=== PATIENT | male | born 1965 | race Caucasian/White ===

== ENCOUNTER 2018-10-29 14:13 | Emergency (ER) | payer MEDICARE, MEDICAID ==
--- NOTE | 2018-10-29 14:25 | EDM.PDOCBH ---
ED HPI GENERAL MEDICAL PROBLEM - General Chief Complaint: Behavioral/Psych Stated Complaint: MEDICAL VIA [facility] Time Seen by Provider: 10/29/18 14:53 Source of Information: Reports: Patient, EMS. Denies: RN Notes Reviewed - History of Present Illness INITIAL COMMENTS - FREE TEXT/NARRATIVE: 53 years old male patient brought in by [facility] ambulance from his prison because he has been arguing with the staff as a prison as he do not want him there anymore. He refused taking his medication last night and he is diabetic. The patient is agitated. Augmentative. Patient doctor or at [facility] also the family waiting for the patient at the ER there as a ER at [facility] is expecting the patientat [facility] ER which is closer than our ER, however the patient was brought in to our ER because he requested that.patient denies any chest pain or shortness breath. Denies any cough or fever. Denies any dizziness. Denies any abdominal pain diarrhea or constipation. Denies any urinary symptom. ED ROS GENERAL - Review of Systems Review Of Systems: ROS reveals no pertinent complaints other than HPI. ED EXAM, BEHAVIORAL HEALTH - Physical Exam Exam: See Below Exam Limited By: No Limitations Ears: Normal External Exam Nose: Normal Inspection Neck: Normal Inspection Respiratory/Chest: No Respiratory Distress, Lungs Clear, Normal Breath Sounds, No Accessory Muscle Use, Chest Non-Tender. No: Respiratory Distress, Decreased Breath Sounds, Crackles, Rales, Rhonchi, Wheezing Cardiovascular: Normal Peripheral Pulses, Regular Rate, Rhythm, No Murmur. No: Bradycardia, Tachycardia GI/Abdominal: Normal Bowel Sounds, Soft, Non-Tender, No Organomegaly, No Distention (Male) Exam: No Hernia Extremities: Normal Inspection, Normal Range of Motion Neurological: Alert, Normal Gait, No Motor/Sensory Deficits Psychiatric: Alert, Oriented, Agitated, Flight of Ideas. No: Homicidal Thoughts , Suicidal Plan, Suicidal Thoughts Skin Exam: Warm, Dry, Normal color COURSE, BEHAVIORAL HEALTH COMP - Course Vital Signs: Last Vital Signs Temp 36.1 C 10/29/18 16:17 Pulse 110 H 10/29/18 16:17 Resp 16 10/29/18 16:17 BP 142/87 H 10/29/18 16:17 Pulse Ox 96 10/29/18 16:17 Orders, Labs, Meds: Active Orders 24 hr Category Date Time Status DRUG SCREEN, URINE [URCHEM] Urgent Lab 10/29/18 14:26 Ordered Laboratory Tests 10/29/18 10/29/18 10/29/18 Range/Units 14:38 14:38 14:38 WBC 7.8 (4.5-11.0) K/uL RBC 4.97 (4.30-5.90) M/uL Hgb 14.0 (12.0-15.0) g/dL Hct 41.5 (40.0-54.0) % MCV 84 (80-98) fL MCH 28 (27-31) pg MCHC 34 (32-36) % Plt Count 405 H (150-400) K/uL Neut % (Auto) 48 (36-66) % Lymph % (Auto) 36 (24-44) % [place] % (Auto) 13 H (2-6) % Eos % (Auto) 2 (2-4) % Baso % (Auto) 1 (0-1) % Sodium 141 (140-148) mmol/L Potassium 4.2 (3.6-5.2) mmol/L Chloride 103 (100-108) mmol/L Carbon Dioxide 29 (21-32) mmol/L Anion Gap 8.6 (5.0-14.0) mmol/L BUN 12 (7-18) mg/dL Creatinine 0.9 (0.8-1.3) mg/dL Est Cr Clr Drug Dosing TNP Estimated GFR (MDRD) > 60 (>60) Glucose 153 H (74-106) mg/dL Calcium 9.0 (8.5-10.1) mg/dL Ethyl Alcohol < 3 mg/dL Medications Discontinued Medications Generic Name Dose Route Start Last Admin Trade Name Freq PRN Reason Stop Dose Admin Olanzapine 5 mg 10/29/18 15:50 Zyprexa PO 10/29/18 15:51 ONETIME ONE Medical Clearance: 10/29/18 15:00 patient was seen and examined shortly after arrival. Stable. Lab reviewed.no significant acute abnormalities. Patient now is calm cooperative. Requested something to help with sleep Given 5 mg oral Zyprexa. His prison agreed to accept him back. Stable for discharge back to his prison. Denies any suicidal or homicidal ideation. 10/29/18 17:07 10/29/18 17:08 Departure - Departure Time of Disposition: 17:09 Disposition: DC/Tfer to [facility] Condition: Good Clinical Impression: Agitation - Discharge Information Referrals: PCP,None [Primary Care Provider] - Forms: ED Department Discharge Additional Instructions: continue home meds Rest and stay well-hydrated Close follow-up with PCP Come back if symptom worsen - My Orders Last 24 Hours: My Active Orders 10/29/18 14:26 DRUG SCREEN, URINE [URCHEM] Urgent - Assessment/Plan Last 24 Hours: My Active Orders 10/29/18 14:26 DRUG SCREEN, URINE [URCHEM] Urgent Plan: continue home meds Rest and stay well-hydrated Close follow-up with PCP Come back if symptom worsen
[2018-10-29] MEDS ORDERED: OLANZapine 5 MG Tab PO ONE (15:50)
== END 2018-10-29 17:09 ==
LOC: JP.ED 14:13
DX: R45.1 Restlessness and agitation (principal); E11.9 Type 2 diabetes mellitus without complications
CPT/HCPCS: 36415; 80048; 85025; 99283; 99284; A9270; G0480

== ENCOUNTER 2018-11-27 12:14 | Observation (INO) | payer MEDICARE, MEDICAID ==
--- NOTE | 2018-11-27 12:38 | EDM.PDOC ---
ED HPI GENERAL MEDICAL PROBLEM - General Chief Complaint: Diabetic Complaint Stated Complaint: ILL Time Seen by Provider: 11/27/18 12:27 Source of Information: Reports: Patient, EMS, RN Notes Reviewed History Limitations: Reports: No Limitations - History of Present Illness INITIAL COMMENTS - FREE TEXT/NARRATIVE: 53-year-old gentleman presents emergency department today via EMS services for elevated blood sugars. He is a resident of a jail states she's been ill for the last 2 or 3 days has been having problems with his blood sugar to have been elevated he does admit to cough and feeling short of breath at times he says he is felt feverish at home no nausea vomiting no chest pain no symptomatology's - Related Data Allergies Allergy/AdvReac Type Severity Reaction Status Date / Time No Known Allergies Allergy Verified 10/29/18 17:29 Home Meds: Home Meds Lisinopril 20 mg PO DAILY 10/29/18 [History] Lurasidone HCl [Latuda] 160 mg PO BEDTIME 10/29/18 [History] Sertraline HCl [Zoloft] 150 mg PO DAILY 10/29/18 [History] glyBURIDE [Micronase] 5 mg PO BID 10/29/18 [History] metFORMIN [Glucophage XR] 1,000 mg PO BID 10/29/18 [History] Doxepin [SINEquan] 50 mg PO BEDTIME 11/27/18 [History] Simvastatin [Zocor] 40 mg PO DAILY 11/27/18 [History] clonazePAM [Clonazepam] 1 mg PO BEDTIME 11/27/18 [History] Past Medical History Cardiovascular History: Reports: High Cholesterol, Hypertension Psychiatric History: Reports: Psych Hospitalization(s), Schizophrenia Endocrine/Metabolic History: Reports: Diabetes, Type II Social & Family History - Tobacco Use Smoking Status *Q: Unknown Ever Smoked ED ROS GENERAL - Review of Systems Review Of Systems: See Below Constitutional: Reports: Fever, Chills HEENT: Reports: No Symptoms Respiratory: Reports: Shortness of Breath, Cough, Sputum Cardiovascular: Reports: Dyspnea on Exertion GI/Abdominal: Reports: Diarrhea : Reports: No Symptoms Musculoskeletal: Reports: No Symptoms ED EXAM GENERAL NO PERIP PULSE - Physical Exam Exam: See Below Text/Narrative:: General: Male, not in any distress, alert and oriented x3 HEENT: head is atraumatic normocephalic, eyes pupils equal round reactive to light, sclera clear no conjunctivitis appreciated. Ears tympanic membranes clear and doss landmarks and light reflex are present bilaterally canals are clear. Nose no septal deviation, nares are clear, no blood present. Mouth mucosa is moist and pink no erythema or exudate noted in soft palate, tongue is midline uvula is midline, dentition is intact. Neck: Supple no thyromegaly no tracheal deviation. Nodes: Cervical nodes subclavicular nodes nontender no palpable lymphadenopathy noted. Lungs: clear to auscultation bilaterally with symmetrical respirations, no adventitious noise appreciated. CV: Regular rate and rhythm S1 and S2 appreciated no murmurs rubs or gallops noted. Abdomen: Soft, nontender, no palpable masses or organomegaly appreciated, no distention no guarding bowel sounds are present, Neuro: GCS 15 Skin: Warm and dry, intact Extremities: No lower extremity edema appreciated, pedal pulse is +2. Rectal (Males) Exam: Normal Exam, Normal Rectal Tone, Prostate Normal Course - Vital Signs Last Recorded V/S: Last Vital Signs Temp 97.8 F 11/27/18 12:17 Pulse 105 H 11/27/18 15:21 Resp 20 11/27/18 13:32 BP 144/79 H 11/27/18 15:21 Pulse Ox 99 11/27/18 13:32 - Orders/Labs/Meds Orders: Active Orders 24 hr Category Date Time Status Patient Status Manage Transfer [TRANSFER] Routine ADT 11/27/18 16:21 Active Vital Signs [RC] Q1H Care 11/27/18 12:32 Active CULTURE BLOOD [BC] Urgent Lab 11/27/18 12:35 Received CULTURE BLOOD [BC] Urgent Lab 11/27/18 12:45 Received Iopamidol [Isovue-300 (61%)] Med 11/27/18 15:15 Active 100 ml IV . DIRECTED Lactated Ringers [Ringers, Lactated] 1,000 ml Med 11/27/18 12:45 Active IV ASDIRECTED Sodium Chloride 0.9% [Normal Saline] 100 ml Med 11/27/18 15:15 Active IV ASDIRECTED Blood Culture x2 Reflex Set [OM.PC] Urgent Oth 11/27/18 12:32 Ordered Resuscitation Status Routine Resus Stat 11/27/18 16:26 Ordered Medication Orders Lactated Ringer's (Ringers, Lactated) 1,000 mls @ 999 mls/hr IV ASDIRECTED FILI Last Admin: 11/27/18 13:04 Dose: 999 mls/hr Sodium Chloride (Normal Saline) 100 mls @ 3 mls/sec IV ASDIRECTED FILI Last Admin: 11/27/18 15:26 Dose: 3 mls/sec Iopamidol (Isovue-300 (61%)) 100 ml IV . DIRECTED FILI Last Admin: 11/27/18 15:27 Dose: 100 ml Labs: Laboratory Tests 11/27/18 11/27/18 11/27/18 Range/Units 12:32 12:32 12:32 WBC 26.2 H (4.5-11.0) K/uL RBC 5.76 (4.30-5.90) M/uL Hgb 15.9 H (12.0-15.0) g/dL Hct 46.5 (40.0-54.0) % MCV 81 (80-98) fL MCH 28 (27-31) pg MCHC 34 (32-36) % Plt Count 480 H (150-400) K/uL Neut % (Auto) 83 H (36-66) % Lymph % (Auto) 9 L (24-44) % [place] % (Auto) 7 H (2-6) % Eos % (Auto) 0 L (2-4) % Baso % (Auto) 0 (0-1) % Puncture Site ABG pH (7.350-7.450) ABG pCO2 (35.0-42.0) mmHg ABG pO2 (75.0-100.0) mmHg ABG HCO3 (22.0-26.0) mmol/L ABG Total CO2 (23.0-27.0) mmol/L ABG O2 Saturation (95.0-98.0) % ABG O2 Content (15.0-23.0) %vol ABG Base Excess mm/L ABG Hemoglobin (13.5-18.0) g/dL ABG Oxyhemoglobin % ABG Carboxyhemoglobin (0.0-1.6) % ABG Methemoglobin % Pablo Test O2 Delivery Device Sodium 132 L (140-148) mmol/L Potassium 4.2 (3.6-5.2) mmol/L Chloride 98 L (100-108) mmol/L Carbon Dioxide 23 (21-32) mmol/L Anion Gap 15.2 H (5.0-14.0) mmol/L BUN 13 (7-18) mg/dL Creatinine 0.9 (0.8-1.3) mg/dL Est Cr Clr Drug Dosing 98.77 mL/min Estimated GFR (MDRD) > 60 (>60) Glucose 283 H (74-106) mg/dL Lactic Acid 2.1 H (0.4-2.0) mmol/L Calcium 8.7 (8.5-10.1) mg/dL Total Bilirubin 0.4 (0.2-1.0) mg/dL AST 16 (15-37) U/L ALT 30 (12-78) U/L Alkaline Phosphatase 87 (46-116) U/L Troponin I (0.000-0.056) ng/mL C-Reactive Protein 0.41 H (0.0-0.3) mg/dL Total Protein 7.8 (6.4-8.2) g/dL Albumin 4.0 (3.4-5.0) g/dL Globulin 3.8 H (2.3-3.5) g/dL Albumin/Globulin Ratio 1.1 L (1.2-2.2) Procalcitonin ng/mL Urine Color (YELLOW) Urine Appearance (CLEAR) Urine pH (5.0-8.0) Ur Specific [place] (1.008-1.030) Urine Protein (NEGATIVE) mg/dL Urine Glucose (UA) (NEGATIVE) mg/dL Urine Ketones (NEGATIVE) mg/dL Urine Occult Blood (NEGATIVE) Urine Nitrite (NEGATIVE) Urine Bilirubin (NEGATIVE) Urine Urobilinogen (0.2-1.0) EU/dL Ur Leukocyte Esterase (NEGATIVE) Urine RBC (0-5) Urine WBC (0-5) Ur Epithelial Cells Amorphous Sediment Urine Bacteria Urine Mucus 11/27/18 11/27/18 11/27/18 Range/Units 12:33 12:35 12:45 WBC (4.5-11.0) K/uL RBC (4.30-5.90) M/uL Hgb (12.0-15.0) g/dL Hct (40.0-54.0) % MCV (80-98) fL MCH (27-31) pg MCHC (32-36) % Plt Count (150-400) K/uL Neut % (Auto) (36-66) % Lymph % (Auto) (24-44) % [place] % (Auto) (2-6) % Eos % (Auto) (2-4) % Baso % (Auto) (0-1) % Puncture Site Rt radial ABG pH 7.469 H (7.350-7.450) ABG pCO2 29.0 L (35.0-42.0) mmHg ABG pO2 85.8 (75.0-100.0) mmHg ABG HCO3 20.8 L (22.0-26.0) mmol/L ABG Total CO2 17.4 L (23.0-27.0) mmol/L ABG O2 Saturation 97.4 (95.0-98.0) % ABG O2 Content 22.2 (15.0-23.0) %vol ABG Base Excess -1.1 mm/L ABG Hemoglobin 16.6 (13.5-18.0) g/dL ABG Oxyhemoglobin 95.1 % ABG Carboxyhemoglobin 1.7 H (0.0-1.6) % ABG Methemoglobin 0.7 % Pablo Test Passed O2 Delivery Device Room air Sodium (140-148) mmol/L Potassium (3.6-5.2) mmol/L Chloride (100-108) mmol/L Carbon Dioxide (21-32) mmol/L Anion Gap (5.0-14.0) mmol/L BUN (7-18) mg/dL Creatinine (0.8-1.3) mg/dL Est Cr Clr Drug Dosing mL/min Estimated GFR (MDRD) (>60) Glucose (74-106) mg/dL Lactic Acid (0.4-2.0) mmol/L Calcium (8.5-10.1) mg/dL Total Bilirubin (0.2-1.0) mg/dL AST (15-37) U/L ALT (12-78) U/L Alkaline Phosphatase (46-116) U/L Troponin I < 0.017 (0.000-0.056) ng/mL C-Reactive Protein (0.0-0.3) mg/dL Total Protein (6.4-8.2) g/dL Albumin (3.4-5.0) g/dL Globulin (2.3-3.5) g/dL Albumin/Globulin Ratio (1.2-2.2) Procalcitonin 0.07 ng/mL Urine Color (YELLOW) Urine Appearance (CLEAR) Urine pH (5.0-8.0) Ur Specific [place] (1.008-1.030) Urine Protein (NEGATIVE) mg/dL Urine Glucose (UA) (NEGATIVE) mg/dL Urine Ketones (NEGATIVE) mg/dL Urine Occult Blood (NEGATIVE) Urine Nitrite (NEGATIVE) Urine Bilirubin (NEGATIVE) Urine Urobilinogen (0.2-1.0) EU/dL Ur Leukocyte Esterase (NEGATIVE) Urine RBC (0-5) Urine WBC (0-5) Ur Epithelial Cells Amorphous Sediment Urine Bacteria Urine Mucus 11/27/18 Range/Units 13:59 WBC (4.5-11.0) K/uL RBC (4.30-5.90) M/uL Hgb (12.0-15.0) g/dL Hct (40.0-54.0) % MCV (80-98) fL MCH (27-31) pg MCHC (32-36) % Plt Count (150-400) K/uL Neut % (Auto) (36-66) % Lymph % (Auto) (24-44) % [place] % (Auto) (2-6) % Eos % (Auto) (2-4) % Baso % (Auto) (0-1) % Puncture Site ABG pH (7.350-7.450) ABG pCO2 (35.0-42.0) mmHg ABG pO2 (75.0-100.0) mmHg ABG HCO3 (22.0-26.0) mmol/L ABG Total CO2 (23.0-27.0) mmol/L ABG O2 Saturation (95.0-98.0) % ABG O2 Content (15.0-23.0) %vol ABG Base Excess mm/L ABG Hemoglobin (13.5-18.0) g/dL ABG Oxyhemoglobin % ABG Carboxyhemoglobin (0.0-1.6) % ABG Methemoglobin % Pablo Test O2 Delivery Device Sodium (140-148) mmol/L Potassium (3.6-5.2) mmol/L Chloride (100-108) mmol/L Carbon Dioxide (21-32) mmol/L Anion Gap (5.0-14.0) mmol/L BUN (7-18) mg/dL Creatinine (0.8-1.3) mg/dL Est Cr Clr Drug Dosing mL/min Estimated GFR (MDRD) (>60) Glucose (74-106) mg/dL Lactic Acid (0.4-2.0) mmol/L Calcium (8.5-10.1) mg/dL Total Bilirubin (0.2-1.0) mg/dL AST (15-37) U/L ALT (12-78) U/L Alkaline Phosphatase (46-116) U/L Troponin I (0.000-0.056) ng/mL C-Reactive Protein (0.0-0.3) mg/dL Total Protein (6.4-8.2) g/dL Albumin (3.4-5.0) g/dL Globulin (2.3-3.5) g/dL Albumin/Globulin Ratio (1.2-2.2) Procalcitonin ng/mL Urine Color Yellow (YELLOW) Urine Appearance Clear (CLEAR) Urine pH 5.5 (5.0-8.0) Ur Specific [place] 1.025 (1.008-1.030) Urine Protein 100 H (NEGATIVE) mg/dL Urine Glucose (UA) 500 H (NEGATIVE) mg/dL Urine Ketones 40 H (NEGATIVE) mg/dL Urine Occult Blood Negative (NEGATIVE) Urine Nitrite Negative (NEGATIVE) Urine Bilirubin Negative (NEGATIVE) Urine Urobilinogen Normal (0.2-1.0) EU/dL Ur Leukocyte Esterase Negative (NEGATIVE) Urine RBC Not seen (0-5) Urine WBC Not seen (0-5) Ur Epithelial Cells Not seen Amorphous Sediment Rare Urine Bacteria Not seen Urine Mucus Not seen Meds: Medications Generic Name Dose Route Start Last Admin Trade Name Freq PRN Reason Stop Dose Admin Lactated Ringer's 1,000 mls @ 999 mls/hr 11/27/18 12:45 11/27/18 13:04 Ringers, Lactated IV 999 mls/hr ASDIRECTED FILI Administration Sodium Chloride 100 mls @ 3 mls/sec 11/27/18 15:15 11/27/18 15:26 Normal Saline IV 3 mls/sec ASDIRECTED FILI Administration Iopamidol 100 ml 11/27/18 15:15 11/27/18 15:27 Isovue-300 (61%) IV 100 ml . DIRECTED FILI Administration Discontinued Medications Generic Name Dose Route Start Last Admin Trade Name Kitty PRN Reason Stop Dose Admin Sodium Chloride 10 ml 11/27/18 15:15 11/27/18 15:26 Saline Flush FLUSH 11/27/18 15:16 10 ml ONETIME ONE Administration Departure - Departure Time of Disposition: 16:45 Disposition: Admitted As Inpatient 64 Condition: Fair Clinical Impression: Diarrhea Qualifiers: Diarrhea type: unspecified type Qualified Code(s): R19.7 - Diarrhea, unspecified - Discharge Information Referrals: PCP,None [Primary Care Provider] - Forms: ED Department Discharge - My Orders Last 24 Hours: My Active Orders 11/27/18 12:32 Vital Signs [RC] Q1H Blood Culture x2 Reflex Set [OM.PC] Urgent 11/27/18 12:35 CULTURE BLOOD [BC] Urgent 11/27/18 12:45 CULTURE BLOOD [BC] Urgent Lactated Ringers [Ringers, Lactated] 1,000 ml IV ASDIRECTED 11/27/18 15:15 Iopamidol [Isovue-300 (61%)] 100 ml IV . DIRECTED Sodium Chloride 0.9% [Normal Saline] 100 ml IV ASDIRECTED - Assessment/Plan Last 24 Hours: My Active Orders 11/27/18 12:32 Vital Signs [RC] Q1H Blood Culture x2 Reflex Set [OM.PC] Urgent 11/27/18 12:35 CULTURE BLOOD [BC] Urgent 11/27/18 12:45 CULTURE BLOOD [BC] Urgent Lactated Ringers [Ringers, Lactated] 1,000 ml IV ASDIRECTED 11/27/18 15:15 Iopamidol [Isovue-300 (61%)] 100 ml IV . DIRECTED Sodium Chloride 0.9% [Normal Saline] 100 ml IV ASDIRECTED Plan: Assessment Acuity = acute Site and laterality = abdominal discomfort, diarrhea Etiology = unclear etiology Manifestations = none Location of injury = Home Lab values = WBC elevated 26.2 consistent leukocytosis, pH 7.47 PCO2 29 PO2 85.8 bicarbonate 17.9 Pro calcitonin is normal at 0.07 sodium low month or 2 consistent hyponatremia lactic acid normal at 2.1 troponin is negative CRP slightly elevated 0.418 CTs scan of the abdomen does show thickened esophagus Plan Called and discussed the case with hospitalist on-call at 1630 kindly agreed to come and evaluate the patient emergency department for admission This note was dictated using [employer] voice recognition software please call with any questions on syntax or grammar.
[2018-11-27] MEDS ORDERED: Lactated Ringers 1,000 ML IV SCH (12:45)
--- NOTE | 2018-11-27 13:13 | CRLCR ---
Indication: Cough. Technique: PA and lateral views the chest were obtained. Comparison: None Findings: The heart is normal in size. The lungs are clear. No infiltrate, pleural effusion, or pneumothorax is identified. Impression: No acute cardiopulmonary process. Dictated by Kristi Rashid MD @ Nov 27 2018 1:11PM Signed by Dr. Kristi Rashid @ Nov 27 2018 1:12PM
[2018-11-27] MEDS ORDERED: Iopamidol 612 MG/ML 100 ML Bottle IV SCH (15:15)
[2018-11-27] MEDS ORDERED: Sodium Chloride 0.9% 10 ML Syringe FLUSH ONE (15:15)
[2018-11-27] MEDS ORDERED: Sodium Chloride 0.9% 100 ML IV SCH (15:15)
--- NOTE | 2018-11-27 16:18 | CRLCT ---
Indication: Generalized pain. Technique: Multiple contiguous axial images were obtained from the lung bases through the symphysis pubis after the intravenous administration of 100 cc Isovue-300. Please note that all CT scans at this facility use dose modulation, iterative reconstruction, and/or weight-based dosing when appropriate to reduce radiation dose to as low as reasonably achievable. Comparison: None Findings: Thickening of the wall of the distal esophagus is identified. The stomach is distended with fluid. Layering sludge or stones are identified within the gallbladder. Mild diffuse fatty infiltration of the liver is identified. No intrahepatic biliary ductal dilatation is identified. The spleen, pancreas, adrenals, and kidneys are grossly normal. A small left renal cyst is identified. In the pelvis, thickening of the wall the urinary bladder is identified. Prostate gland is grossly normal. The small large bowel are normal in caliber. The appendix is normal. No free air or free fluid is identified within the abdomen or pelvis. No lytic or blastic lesions are identified. Impression: Thickening of the wall of the distal esophagus. An EGD may be of benefit in further evaluating this finding. Thickening of the wall urinary bladder. Cystitis cannot be excluded. Clinical follow up is recommended. Please note that all CT scans at this facility use dose modulation, iterative reconstruction, and/or weight-based dosing when appropriate to reduce radiation dose to as low as reasonably achievable. Dictated by Kristi Rashid MD @ Nov 27 2018 4:14PM Signed by Dr. Kristi Rashid @ Nov 27 2018 4:17PM
--- NOTE | 2018-11-27 16:37 | PCM.HP.2 ---
H&P History of Present Illness - General Date of Service: 11/27/18 Admit Problem/Dx: Admission Diagnosis/Problem Admission Diagnosis/Problem Colitis Source of Information: Patient, Provider, RN Notes Reviewed History Limitations: Reports: No Limitations - History of Present Illness Initial Comments - Free Text/Narative: Mr. Hill is a 53-year-old gentleman who was admitted to observation status through the emergency department with dehydration and diarrhea, secondary to colitis. He is also experienced symptoms of dysphagia and pain in the chest secondary to esophagitis. He was feeling well until about 3 days ago when he began to develop watery diarrhea and estimates that he has had at least 10 stools per day. He denies fever, chills, sweats or significant abdominal pain associated with the diarrhea. On evaluation in the emergency department white blood cell count is elevated at 26,000 and there is a very modest elevation in lactic acid level likely secondary to dehydration. He has dry oral mucosal membranes consistent with dehydration and was mildly tachycardic on initial presentation. Tachycardia has improved with IV fluids given in the emergency department. CT scan of the abdomen pelvis shows thickening of the esophagus but no other significant abnormalities. - Related Data Allergies/Adverse Reactions: Allergies Allergy/AdvReac Type Severity Reaction Status Date / Time No Known Allergies Allergy Verified 10/29/18 17:29 Home Medications: Home Meds Lisinopril 20 mg PO DAILY 10/29/18 [History] Lurasidone HCl [Latuda] 160 mg PO BEDTIME 10/29/18 [History] Sertraline HCl [Zoloft] 150 mg PO DAILY 10/29/18 [History] glyBURIDE [Micronase] 5 mg PO BID 10/29/18 [History] metFORMIN [Glucophage XR] 1,000 mg PO BID 10/29/18 [History] Doxepin [SINEquan] 50 mg PO BEDTIME 11/27/18 [History] Simvastatin [Zocor] 40 mg PO DAILY 11/27/18 [History] clonazePAM [Clonazepam] 1 mg PO BEDTIME 11/27/18 [History] Past Medical History Cardiovascular History: Reports: High Cholesterol, Hypertension Psychiatric History: Reports: Psych Hospitalization(s), Schizophrenia Endocrine/Metabolic History: Reports: Diabetes, Type II Social & Family History - Tobacco Use Smoking Status *Q: Unknown Ever Smoked H&P Review of Systems - Review of Systems: Review Of Systems: See Below General: Reports: Malaise, Weakness. Denies: Fever, Chills HEENT: Reports: Dysphasia. Denies: Headaches Pulmonary: Reports: No Symptoms Cardiovascular: Reports: No Symptoms Gastrointestinal: Reports: Diarrhea. Denies: Abdominal Pain, Difficulty Swallowing, Hematemesis, Hematochezia, Melena, Nausea, Vomiting Genitourinary: Reports: No Symptoms Musculoskeletal: Reports: No Symptoms Skin: Reports: No Symptoms Psychiatric: Reports: No Symptoms Neurological: Reports: No Symptoms Hematologic/Lymphatic: Reports: No Symptoms Immunologic: Reports: No Symptoms Exam - Exam Exam: See Below - Vital Signs Vital Signs: Last Vital Signs Temp 97.8 F 11/27/18 12:17 Pulse 105 H 11/27/18 15:21 Resp 20 11/27/18 13:32 BP 144/79 H 11/27/18 15:21 Pulse Ox 99 11/27/18 13:32 Weight: 222 lb - Exam Quality Assessment: DVT Prophylaxis General: Alert, Oriented, Cooperative, Mild Distress HEENT: Conjunctiva Clear, Hearing Intact, Normal Nasal Septum, Posterior Pharynx Clear, Pupils Equal. No: Mucosa Moist & [place]: Supple, Trachea Midline, +2 Carotid Pulse wo Bruit Lungs: Clear to Auscultation, Normal Respiratory Effort Cardiovascular: Regular Rate, Regular Rhythm, Normal S1, Normal S2. No: Systolic Murmur, Diastolic Murmur GI/Abdominal Exam: Soft, Non-Tender, No Organomegaly, No Distention Back Exam: Normal Inspection, Full Range of Motion Extremities: Non-Tender, No Pedal Edema Skin: Warm, Dry, Intact Neurological: Cranial Nerves Intact, Strength Equal Bilateral, Normal Speech, Normal Tone, Sensation Intact. No: Focal Deficit Neuro Extensive - Mental Status: Alert, Oriented x3, Normal Cognition, Memory Intact. No: Normal Mood/Affect (Flat affect) - Patient Data Lab Results Last 24 hrs: Laboratory Results - last 24 hr 11/27/18 11/27/18 11/27/18 Range/Units 12:32 12:32 12:32 WBC 26.2 H (4.5-11.0) K/uL RBC 5.76 (4.30-5.90) M/uL Hgb 15.9 H (12.0-15.0) g/dL Hct 46.5 (40.0-54.0) % MCV 81 (80-98) fL MCH 28 (27-31) pg MCHC 34 (32-36) % Plt Count 480 H (150-400) K/uL Neut % (Auto) 83 H (36-66) % Lymph % (Auto) 9 L (24-44) % [place] % (Auto) 7 H (2-6) % Eos % (Auto) 0 L (2-4) % Baso % (Auto) 0 (0-1) % Puncture Site ABG pH (7.350-7.450) ABG pCO2 (35.0-42.0) mmHg ABG pO2 (75.0-100.0) mmHg ABG HCO3 (22.0-26.0) mmol/L ABG Total CO2 (23.0-27.0) mmol/L ABG O2 Saturation (95.0-98.0) % ABG O2 Content (15.0-23.0) %vol ABG Base Excess mm/L ABG Hemoglobin (13.5-18.0) g/dL ABG Oxyhemoglobin % ABG Carboxyhemoglobin (0.0-1.6) % ABG Methemoglobin % Pablo Test O2 Delivery Device Sodium 132 L (140-148) mmol/L Potassium 4.2 (3.6-5.2) mmol/L Chloride 98 L (100-108) mmol/L Carbon Dioxide 23 (21-32) mmol/L Anion Gap 15.2 H (5.0-14.0) mmol/L BUN 13 (7-18) mg/dL Creatinine 0.9 (0.8-1.3) mg/dL Est Cr Clr Drug Dosing 98.77 mL/min Estimated GFR (MDRD) > 60 (>60) Glucose 283 H (74-106) mg/dL Lactic Acid 2.1 H (0.4-2.0) mmol/L Calcium 8.7 (8.5-10.1) mg/dL Total Bilirubin 0.4 (0.2-1.0) mg/dL AST 16 (15-37) U/L ALT 30 (12-78) U/L Alkaline Phosphatase 87 (46-116) U/L Troponin I (0.000-0.056) ng/mL C-Reactive Protein 0.41 H (0.0-0.3) mg/dL Total Protein 7.8 (6.4-8.2) g/dL Albumin 4.0 (3.4-5.0) g/dL Globulin 3.8 H (2.3-3.5) g/dL Albumin/Globulin Ratio 1.1 L (1.2-2.2) Procalcitonin ng/mL Urine Color (YELLOW) Urine Appearance (CLEAR) Urine pH (5.0-8.0) Ur Specific [place] (1.008-1.030) Urine Protein (NEGATIVE) mg/dL Urine Glucose (UA) (NEGATIVE) mg/dL Urine Ketones (NEGATIVE) mg/dL Urine Occult Blood (NEGATIVE) Urine Nitrite (NEGATIVE) Urine Bilirubin (NEGATIVE) Urine Urobilinogen (0.2-1.0) EU/dL Ur Leukocyte Esterase (NEGATIVE) Urine RBC (0-5) Urine WBC (0-5) Ur Epithelial Cells Amorphous Sediment Urine Bacteria Urine Mucus 11/27/18 11/27/18 11/27/18 Range/Units 12:33 12:35 12:45 WBC (4.5-11.0) K/uL RBC (4.30-5.90) M/uL Hgb (12.0-15.0) g/dL Hct (40.0-54.0) % MCV (80-98) fL MCH (27-31) pg MCHC (32-36) % Plt Count (150-400) K/uL Neut % (Auto) (36-66) % Lymph % (Auto) (24-44) % [place]christ % (Auto) (2-6) % Eos % (Auto) (2-4) % Baso % (Auto) (0-1) % Puncture Site Rt radial ABG pH 7.469 H (7.350-7.450) ABG pCO2 29.0 L (35.0-42.0) mmHg ABG pO2 85.8 (75.0-100.0) mmHg ABG HCO3 20.8 L (22.0-26.0) mmol/L ABG Total CO2 17.4 L (23.0-27.0) mmol/L ABG O2 Saturation 97.4 (95.0-98.0) % ABG O2 Content 22.2 (15.0-23.0) %vol ABG Base Excess -1.1 mm/L ABG Hemoglobin 16.6 (13.5-18.0) g/dL ABG Oxyhemoglobin 95.1 % ABG Carboxyhemoglobin 1.7 H (0.0-1.6) % ABG Methemoglobin 0.7 % Pablo Test Passed O2 Delivery Device Room air Sodium (140-148) mmol/L Potassium (3.6-5.2) mmol/L Chloride (100-108) mmol/L Carbon Dioxide (21-32) mmol/L Anion Gap (5.0-14.0) mmol/L BUN (7-18) mg/dL Creatinine (0.8-1.3) mg/dL Est Cr Clr Drug Dosing mL/min Estimated GFR (MDRD) (>60) Glucose (74-106) mg/dL Lactic Acid (0.4-2.0) mmol/L Calcium (8.5-10.1) mg/dL Total Bilirubin (0.2-1.0) mg/dL AST (15-37) U/L ALT (12-78) U/L Alkaline Phosphatase (46-116) U/L Troponin I < 0.017 (0.000-0.056) ng/mL C-Reactive Protein (0.0-0.3) mg/dL Total Protein (6.4-8.2) g/dL Albumin (3.4-5.0) g/dL Globulin (2.3-3.5) g/dL Albumin/Globulin Ratio (1.2-2.2) Procalcitonin 0.07 ng/mL Urine Color (YELLOW) Urine Appearance (CLEAR) Urine pH (5.0-8.0) Ur Specific [place] (1.008-1.030) Urine Protein (NEGATIVE) mg/dL Urine Glucose (UA) (NEGATIVE) mg/dL Urine Ketones (NEGATIVE) mg/dL Urine Occult Blood (NEGATIVE) Urine Nitrite (NEGATIVE) Urine Bilirubin (NEGATIVE) Urine Urobilinogen (0.2-1.0) EU/dL Ur Leukocyte Esterase (NEGATIVE) Urine RBC (0-5) Urine WBC (0-5) Ur Epithelial Cells Amorphous Sediment Urine Bacteria Urine Mucus 11/27/18 Range/Units 13:59 WBC (4.5-11.0) K/uL RBC (4.30-5.90) M/uL Hgb (12.0-15.0) g/dL Hct (40.0-54.0) % MCV (80-98) fL MCH (27-31) pg MCHC (32-36) % Plt Count (150-400) K/uL Neut % (Auto) (36-66) % Lymph % (Auto) (24-44) % [place] % (Auto) (2-6) % Eos % (Auto) (2-4) % Baso % (Auto) (0-1) % Puncture Site ABG pH (7.350-7.450) ABG pCO2 (35.0-42.0) mmHg ABG pO2 (75.0-100.0) mmHg ABG HCO3 (22.0-26.0) mmol/L ABG Total CO2 (23.0-27.0) mmol/L ABG O2 Saturation (95.0-98.0) % ABG O2 Content (15.0-23.0) %vol ABG Base Excess mm/L ABG Hemoglobin (13.5-18.0) g/dL ABG Oxyhemoglobin % ABG Carboxyhemoglobin (0.0-1.6) % ABG Methemoglobin % Pablo Test O2 Delivery Device Sodium (140-148) mmol/L Potassium (3.6-5.2) mmol/L Chloride (100-108) mmol/L Carbon Dioxide (21-32) mmol/L Anion Gap (5.0-14.0) mmol/L BUN (7-18) mg/dL Creatinine (0.8-1.3) mg/dL Est Cr Clr Drug Dosing mL/min Estimated GFR (MDRD) (>60) Glucose (74-106) mg/dL Lactic Acid (0.4-2.0) mmol/L Calcium (8.5-10.1) mg/dL Total Bilirubin (0.2-1.0) mg/dL AST (15-37) U/L ALT (12-78) U/L Alkaline Phosphatase (46-116) U/L Troponin I (0.000-0.056) ng/mL C-Reactive Protein (0.0-0.3) mg/dL Total Protein (6.4-8.2) g/dL Albumin (3.4-5.0) g/dL Globulin (2.3-3.5) g/dL Albumin/Globulin Ratio (1.2-2.2) Procalcitonin ng/mL Urine Color Yellow (YELLOW) Urine Appearance Clear (CLEAR) Urine pH 5.5 (5.0-8.0) Ur Specific [place] 1.025 (1.008-1.030) Urine Protein 100 H (NEGATIVE) mg/dL Urine Glucose (UA) 500 H (NEGATIVE) mg/dL Urine Ketones 40 H (NEGATIVE) mg/dL Urine Occult Blood Negative (NEGATIVE) Urine Nitrite Negative (NEGATIVE) Urine Bilirubin Negative (NEGATIVE) Urine Urobilinogen Normal (0.2-1.0) EU/dL Ur Leukocyte Esterase Negative (NEGATIVE) Urine RBC Not seen (0-5) Urine WBC Not seen (0-5) Ur Epithelial Cells Not seen Amorphous Sediment Rare Urine Bacteria Not seen Urine Mucus Not seen Result Diagrams: 11/27/18 12:32 11/27/18 12:32 *Q Meaningful Use (ADM) - VTE *Q VTE Pharmacological Contraindications *Q: Patient Scheduled Surgery - VTE Risk Assess *Q Each Risk Factor Represents 1 Point: Age 41 - 59 years, Obesity ( BMI > 25 kg/m2 ) Total Score 1 Point Risk Factors: 2 Each Risk Factor Represents 2 Points: None Total Score 2 Point Risk Factors: 0 Each Risk Factor Represents 3 Points: None Total Score 3 Point Risk Factors: 0 Each Risk Factor Represents 5 Points: None Total Score 5 Point Risk Factors: 0 Venous Thromboembolism Risk Factor Score *Q: 2 Problem List Initiated/Reviewed/Updated: Yes Orders Last 24hrs: Active Orders 24 hr Category Date Time Status Patient Status Manage Transfer [TRANSFER] Routine ADT 11/27/18 16:21 Ordered Vital Signs [RC] Q1H Care 11/27/18 12:32 Active CULTURE BLOOD [BC] Urgent Lab 11/27/18 12:35 Received CULTURE BLOOD [BC] Urgent Lab 11/27/18 12:45 Received Iopamidol [Isovue-300 (61%)] Med 11/27/18 15:15 Active 100 ml IV . DIRECTED Lactated Ringers [Ringers, Lactated] 1,000 ml Med 11/27/18 12:45 Active IV ASDIRECTED Sodium Chloride 0.9% [Normal Saline] 100 ml Med 11/27/18 15:15 Active IV ASDIRECTED Blood Culture x2 Reflex Set [OM.PC] Urgent Oth 11/27/18 12:32 Ordered Resuscitation Status Routine Resus Stat 11/27/18 16:26 Ordered Medication Orders Lactated Ringer's (Ringers, Lactated) 1,000 mls @ 999 mls/hr IV ASDIRECTED COUNTS INCLUDE 234 BEDS AT THE [facility] Last Admin: 11/27/18 13:04 Dose: 999 mls/hr Sodium Chloride (Normal Saline) 100 mls @ 3 mls/sec IV ASDIRECTED COUNTS INCLUDE 234 BEDS AT THE [facility] Last Admin: 11/27/18 15:26 Dose: 3 mls/sec Iopamidol (Isovue-300 (61%)) 100 ml IV . DIRECTED COUNTS INCLUDE 234 BEDS AT THE [facility] Last Admin: 11/27/18 15:27 Dose: 100 ml Assessment/Plan Comment:: ASSESSMENT AND PLAN DIARRHEA-likely secondary to colitis, significant elevation in white blood cell count suggests possible bacterial component -Stool for Clostridium difficile -IV ciprofloxacin and Flagyl -IV fluids for hydration ESOPHAGITIS-thickening of the esophagus identified on CT scan, symptom difficulty swallowing. -Clear liquid diet -Nothing by mouth after midnight -Protonix 40 mg IV every 12 hours -EGD with Dr. Camilo in a.m. DEHYDRATION-secondary to difficulty with swallowing as well as diarrhea -IV fluids for hydration TYPE 2 DIABETES MELLITUS -Hold metformin and glipizide -4 times a day glucometers -Low-dose sliding scale Humalog SCHIZOPHRENIA -Continue outpatient medical regimen MAINTENANCE ISSUES -DVT prophylaxis; scuds, not a candidate for anticoagulation because of EGD in a.m. -GI prophylaxis; current therapy with Protonix should provide adequate DVT prophylaxis -Avalos catheter; not indicated -Nutrition; clear liquid diet, nothing by mouth after midnight -Nicotine dependence; 21 mg nicotine patch and 2 mg nicotine gum CODE STATUS-FULL CODE ADMISSION STATUS-this patient will be admitted to observation status, expect no more than a one night hospital stay for evaluation and management of problems as outlined above. DISPOSITION-anticipate discharge to home after the hospital stay. PRIMARY CARE PROVIDER- - Mortality Measure Prognosis:: Good
[2018-11-27] MEDS ORDERED: Acetaminophen 325 MG Tab PO PRN (17:01)
[2018-11-27] MEDS ORDERED: Sodium Chloride 0.9% 10 ML Syringe FLUSH PRN (17:01)
[2018-11-27] MEDS ORDERED: Ondansetron 4 MG/2 ML SDV IV PRN (17:01)
[2018-11-27] MEDS ORDERED: 50% Dextrose in Water 50 ML Syringe IV PRN (17:01)
[2018-11-27] MEDS ORDERED: Glucose Gel 15 GM in 37.5 GM Tube PO PRN (17:01)
[2018-11-27] MEDS ORDERED: Nicotine Polacrilex 2 MG Gum CHEW PRN (17:04)
[2018-11-27] MEDS: Pantoprazole 40 MG Vial IVPUSH SCH (17:25)
[2018-11-27] MEDS: Ciprofloxacin in D5W 400 MG in Premix Bag 1 BAG IV SCH ×2 (17:26)
[2018-11-27] MEDS: Nicotine 21 MG/24 Hr Patch TRDERM SCH (17:29)
[2018-11-27] MEDS: metroNIDAZOLE/Normal Saline 500 MG in Premix Bag 1 BAG IV SCH (19:35)
[2018-11-27] MEDS: Doxepin 25 MG Cap PO SCH (20:52)
[2018-11-27] MEDS: ClonazePAM 1 MG Tab PO SCH (20:52)
[2018-11-27] MEDS: Insulin Lispro 100 Unit/ML 3 ML KwikPen SUBCUT SCH (20:56)
[2018-11-28] MEDS: metroNIDAZOLE/Normal Saline 500 MG in Premix Bag 1 BAG IV SCH ×2 (01:34→10:51)
[2018-11-28] MEDS: Sodium Chloride 0.9% 1,000 ML IV SCH ×2 (03:13→10:27)
[2018-11-28] MEDS: Ciprofloxacin in D5W 400 MG in Premix Bag 1 BAG IV SCH ×2 (04:39)
[2018-11-28] MEDS: Pantoprazole 40 MG Vial IVPUSH SCH (05:36)
[2018-11-28] MEDS: Insulin Lispro 100 Unit/ML 3 ML KwikPen SUBCUT SCH ×3 (08:08→18:50)
[2018-11-28] MEDS ORDERED: fentaNYL 100 MCG/2 ML SDV ONE (08:09)
[2018-11-28] MEDS ORDERED: Propofol 200 MG/20 ML SDV ONE (08:10)
[2018-11-28] MEDS: Simvastatin 20 MG Tab PO SCH (11:37)
[2018-11-28] MEDS: Lisinopril 20 MG Tab PO SCH (11:38)
[2018-11-28] MEDS: Sertraline 50 MG Tab PO SCH (11:38)
[2018-11-28] MEDS: Nicotine 21 MG/24 Hr Patch TRDERM SCH (11:38)
--- NOTE | 2018-11-28 11:38 | PCM.PN ---
- General Info Date of Service: 11/28/18 Subjective Update: No acute events overnight. No recurrence of nausea or diarrhea. No report of abdominal pain. White blood cell count trending down and he has not had any fevers. EGD this morning did show significant esophagitis with some white plaques that was concerning for Christina. Underlying malignancy could not be excluded. After returning to the room he is hungry and interested in trying at least some liquids and preferably some food. Functional Status: Reports: Pain Controlled - Review of Systems General: Denies: Fever Gastrointestinal: Denies: Abdominal Pain, Nausea - Patient Data Vitals - Most Recent: Last Vital Signs Temp 36.2 C 11/28/18 11:36 Pulse 79 11/28/18 11:36 Resp 16 11/28/18 11:36 BP 151/87 H 11/28/18 11:36 Pulse Ox 98 11/28/18 11:36 Weight - Most Recent: 93.531 kg I&O - Last 24 Hours: Intake & Output 11/27/18 11/28/18 11/28/18 22:59 06:59 14:59 Intake Total 1620 1309 175 Balance 1620 1309 175 Lab Results Last 24 Hours: Laboratory Results - last 24 hr 11/27/18 11/27/18 11/27/18 Range/Units 12:32 12:32 12:32 WBC 26.2 H (4.5-11.0) K/uL RBC 5.76 (4.30-5.90) M/uL Hgb 15.9 H (12.0-15.0) g/dL Hct 46.5 (40.0-54.0) % MCV 81 (80-98) fL MCH 28 (27-31) pg MCHC 34 (32-36) % Plt Count 480 H (150-400) K/uL Neut % (Auto) 83 H (36-66) % Lymph % (Auto) 9 L (24-44) % [place] % (Auto) 7 H (2-6) % Eos % (Auto) 0 L (2-4) % Baso % (Auto) 0 (0-1) % Puncture Site ABG pH (7.350-7.450) ABG pCO2 (35.0-42.0) mmHg ABG pO2 (75.0-100.0) mmHg ABG HCO3 (22.0-26.0) mmol/L ABG Total CO2 (23.0-27.0) mmol/L ABG O2 Saturation (95.0-98.0) % ABG O2 Content (15.0-23.0) %vol ABG Base Excess mm/L ABG Hemoglobin (13.5-18.0) g/dL ABG Oxyhemoglobin % ABG Carboxyhemoglobin (0.0-1.6) % ABG Methemoglobin % Pablo Test O2 Delivery Device Sodium 132 L (140-148) mmol/L Potassium 4.2 (3.6-5.2) mmol/L Chloride 98 L (100-108) mmol/L Carbon Dioxide 23 (21-32) mmol/L Anion Gap 15.2 H (5.0-14.0) mmol/L BUN 13 (7-18) mg/dL Creatinine 0.9 (0.8-1.3) mg/dL Est Cr Clr Drug Dosing 98.77 mL/min Estimated GFR (MDRD) > 60 (>60) Glucose 283 H (74-106) mg/dL Lactic Acid 2.1 H (0.4-2.0) mmol/L Calcium 8.7 (8.5-10.1) mg/dL Total Bilirubin 0.4 (0.2-1.0) mg/dL AST 16 (15-37) U/L ALT 30 (12-78) U/L Alkaline Phosphatase 87 (46-116) U/L Troponin I (0.000-0.056) ng/mL C-Reactive Protein 0.41 H (0.0-0.3) mg/dL Total Protein 7.8 (6.4-8.2) g/dL Albumin 4.0 (3.4-5.0) g/dL Globulin 3.8 H (2.3-3.5) g/dL Albumin/Globulin Ratio 1.1 L (1.2-2.2) Procalcitonin ng/mL Urine Color (YELLOW) Urine Appearance (CLEAR) Urine pH (5.0-8.0) Ur Specific [place] (1.008-1.030) Urine Protein (NEGATIVE) mg/dL Urine Glucose (UA) (NEGATIVE) mg/dL Urine Ketones (NEGATIVE) mg/dL Urine Occult Blood (NEGATIVE) Urine Nitrite (NEGATIVE) Urine Bilirubin (NEGATIVE) Urine Urobilinogen (0.2-1.0) EU/dL Ur Leukocyte Esterase (NEGATIVE) Urine RBC (0-5) Urine WBC (0-5) Ur Epithelial Cells Amorphous Sediment Urine Bacteria Urine Mucus 11/27/18 11/27/18 11/27/18 Range/Units 12:33 12:35 12:45 WBC (4.5-11.0) K/uL RBC (4.30-5.90) M/uL Hgb (12.0-15.0) g/dL Hct (40.0-54.0) % MCV (80-98) fL MCH (27-31) pg MCHC (32-36) % Plt Count (150-400) K/uL Neut % (Auto) (36-66) % Lymph % (Auto) (24-44) % [place] % (Auto) (2-6) % Eos % (Auto) (2-4) % Baso % (Auto) (0-1) % Puncture Site Rt radial ABG pH 7.469 H (7.350-7.450) ABG pCO2 29.0 L (35.0-42.0) mmHg ABG pO2 85.8 (75.0-100.0) mmHg ABG HCO3 20.8 L (22.0-26.0) mmol/L ABG Total CO2 17.4 L (23.0-27.0) mmol/L ABG O2 Saturation 97.4 (95.0-98.0) % ABG O2 Content 22.2 (15.0-23.0) %vol ABG Base Excess -1.1 mm/L ABG Hemoglobin 16.6 (13.5-18.0) g/dL ABG Oxyhemoglobin 95.1 % ABG Carboxyhemoglobin 1.7 H (0.0-1.6) % ABG Methemoglobin 0.7 % Pablo Test Passed O2 Delivery Device Room air Sodium (140-148) mmol/L Potassium (3.6-5.2) mmol/L Chloride (100-108) mmol/L Carbon Dioxide (21-32) mmol/L Anion Gap (5.0-14.0) mmol/L BUN (7-18) mg/dL Creatinine (0.8-1.3) mg/dL Est Cr Clr Drug Dosing mL/min Estimated GFR (MDRD) (>60) Glucose (74-106) mg/dL Lactic Acid (0.4-2.0) mmol/L Calcium (8.5-10.1) mg/dL Total Bilirubin (0.2-1.0) mg/dL AST (15-37) U/L ALT (12-78) U/L Alkaline Phosphatase (46-116) U/L Troponin I < 0.017 (0.000-0.056) ng/mL C-Reactive Protein (0.0-0.3) mg/dL Total Protein (6.4-8.2) g/dL Albumin (3.4-5.0) g/dL Globulin (2.3-3.5) g/dL Albumin/Globulin Ratio (1.2-2.2) Procalcitonin 0.07 ng/mL Urine Color (YELLOW) Urine Appearance (CLEAR) Urine pH (5.0-8.0) Ur Specific [place] (1.008-1.030) Urine Protein (NEGATIVE) mg/dL Urine Glucose (UA) (NEGATIVE) mg/dL Urine Ketones (NEGATIVE) mg/dL Urine Occult Blood (NEGATIVE) Urine Nitrite (NEGATIVE) Urine Bilirubin (NEGATIVE) Urine Urobilinogen (0.2-1.0) EU/dL Ur Leukocyte Esterase (NEGATIVE) Urine RBC (0-5) Urine WBC (0-5) Ur Epithelial Cells Amorphous Sediment Urine Bacteria Urine Mucus 11/27/18 11/28/18 11/28/18 Range/Units 13:59 04:30 04:30 WBC 17.3 H (4.5-11.0) K/uL RBC 4.83 (4.30-5.90) M/uL Hgb 13.7 D (12.0-15.0) g/dL Hct 40.2 (40.0-54.0) % MCV 83 (80-98) fL MCH 28 (27-31) pg MCHC 34 (32-36) % Plt Count 382 (150-400) K/uL Neut % (Auto) 71 H (36-66) % Lymph % (Auto) 19 L (24-44) % [place] % (Auto) 9 H (2-6) % Eos % (Auto) 1 L (2-4) % Baso % (Auto) 0 (0-1) % Puncture Site ABG pH (7.350-7.450) ABG pCO2 (35.0-42.0) mmHg ABG pO2 (75.0-100.0) mmHg ABG HCO3 (22.0-26.0) mmol/L ABG Total CO2 (23.0-27.0) mmol/L ABG O2 Saturation (95.0-98.0) % ABG O2 Content (15.0-23.0) %vol ABG Base Excess mm/L ABG Hemoglobin (13.5-18.0) g/dL ABG Oxyhemoglobin % ABG Carboxyhemoglobin (0.0-1.6) % ABG Methemoglobin % Pablo Test O2 Delivery Device Sodium 134 L (140-148) mmol/L Potassium 4.2 (3.6-5.2) mmol/L Chloride 103 (100-108) mmol/L Carbon Dioxide 26 (21-32) mmol/L Anion Gap 9.2 (5.0-14.0) mmol/L BUN 9 (7-18) mg/dL Creatinine 0.8 (0.8-1.3) mg/dL Est Cr Clr Drug Dosing 111.12 mL/min Estimated GFR (MDRD) > 60 (>60) Glucose 127 H (74-106) mg/dL Lactic Acid (0.4-2.0) mmol/L Calcium 8.0 L (8.5-10.1) mg/dL Total Bilirubin (0.2-1.0) mg/dL AST (15-37) U/L ALT (12-78) U/L Alkaline Phosphatase (46-116) U/L Troponin I (0.000-0.056) ng/mL C-Reactive Protein (0.0-0.3) mg/dL Total Protein (6.4-8.2) g/dL Albumin (3.4-5.0) g/dL Globulin (2.3-3.5) g/dL Albumin/Globulin Ratio (1.2-2.2) Procalcitonin ng/mL Urine Color Yellow (YELLOW) Urine Appearance Clear (CLEAR) Urine pH 5.5 (5.0-8.0) Ur Specific [place] 1.025 (1.008-1.030) Urine Protein 100 H (NEGATIVE) mg/dL Urine Glucose (UA) 500 H (NEGATIVE) mg/dL Urine Ketones 40 H (NEGATIVE) mg/dL Urine Occult Blood Negative (NEGATIVE) Urine Nitrite Negative (NEGATIVE) Urine Bilirubin Negative (NEGATIVE) Urine Urobilinogen Normal (0.2-1.0) EU/dL Ur Leukocyte Esterase Negative (NEGATIVE) Urine RBC Not seen (0-5) Urine WBC Not seen (0-5) Ur Epithelial Cells Not seen Amorphous Sediment Rare Urine Bacteria Not seen Urine Mucus Not seen Med Orders - Current: Current Medications Acetaminophen (Tylenol) 650 mg PO Q4H PRN PRN Reason: Pain (Mild 1-3)/fever Clonazepam (Klonopin) 1 mg PO BEDTIME [facility] Last Admin: 11/27/18 20:52 Dose: 1 mg Dextrose (Glutose 15) 15 gm PO ONETIME PRN PRN Reason: Hypoglycemia Dextrose/Water (Dextrose 50% In Water) 50 ml IV ONETIME PRN PRN Reason: Hypoglycemia Doxepin HCl (Sinequan) 50 mg PO BEDTIME [facility] Last Admin: 11/27/18 20:52 Dose: 50 mg Ciprofloxacin/Dextrose 400 mg/ (Premix) 200 mls @ 200 mls/hr IV Q12H [facility] Last Admin: 11/28/18 04:39 Dose: 200 mls/hr Metronidazole 500 mg/ Premix 100 mls @ 100 mls/hr IV Q8H [facility] Last Admin: 11/28/18 10:51 Dose: 100 mls/hr Sodium Chloride (Normal Saline) 1,000 mls @ 125 mls/hr IV ASDIRECTED [facility] Last Admin: 11/28/18 10:27 Dose: 125 mls/hr Fluconazole/Sodium Chloride (200 mg/ Premix) 100 mls @ 100 mls/hr IV Q24H [facility] Insulin Human Lispro (Humalog) 0 unit SUBCUT QIDACANDBED [facility]; Protocol Last Admin: 11/28/18 08:08 Dose: 1 units Lisinopril (Prinivil) 20 mg PO DAILY [facility] Nicotine (Habitrol) 21 mg TRDERM DAILY [facility] Last Admin: 11/27/18 17:29 Dose: 21 mg Nicotine Polacrilex (Nicorelief) 2 mg CHEW Q1H PRN PRN Reason: Other Non-Formulary Medication (Lurasidone Hcl [Latuda]) 160 mg PO BEDTIME [facility] Ondansetron HCl (Zofran) 4 mg IV Q4H PRN PRN Reason: Nausea/Vomiting Last Admin: 11/27/18 17:16 Dose: 4 mg Pantoprazole Sodium (Protonix Iv) 40 mg IVPUSH Q12H [facility] Last Admin: 11/28/18 05:36 Dose: 40 mg Pneumococcal Polyvalent Vaccine (Pneumovax 23) 0.5 ml IM .ONCE ONE Stop: 11/28/18 14:01 Sertraline HCl (Zoloft) 150 mg PO DAILY [facility] Simvastatin (Zocor) 40 mg PO DAILY [facility] Sodium Chloride (Saline Flush) 10 ml FLUSH ASDIRECTED PRN PRN Reason: Keep Vein Open Discontinued Medications Fentanyl (Sublimaze) Confirm Administered Dose 100 mcg .ROUTE .STK-MED ONE Stop: 11/28/18 08:10 Lactated Ringer's (Ringers, Lactated) 1,000 mls @ 999 mls/hr IV ASDIRECTED [facility] Last Admin: 11/27/18 13:04 Dose: 999 mls/hr Sodium Chloride (Normal Saline) 100 mls @ 3 mls/sec IV ASDIRECTED [facility] Last Admin: 11/27/18 15:26 Dose: 3 mls/sec Iopamidol (Isovue-300 (61%)) 100 ml IV . DIRECTED [facility] Last Admin: 11/27/18 15:27 Dose: 100 ml Propofol (Diprivan 20 Ml) Confirm Administered Dose 200 mg .ROUTE .STK-MED ONE Stop: 11/28/18 08:11 Sodium Chloride (Saline Flush) 10 ml FLUSH ONETIME ONE Stop: 11/27/18 15:16 Last Admin: 11/27/18 15:26 Dose: 10 ml - Exam Quality Assessment: No: Supplemental Oxygen General: Alert, Oriented, Cooperative, No Acute Distress Lungs: Normal Respiratory Effort GI/Abdominal Exam: Soft, No Distention Extremities: No Pedal Edema Skin: Warm, Dry Psy/Mental Status: Alert, Normal Affect - Problem List Review Problem List Initiated/Reviewed/Updated: Yes - My Orders Last 24 Hours: My Active Orders 11/28/18 11:36 Convert IV to Saline Lock [OM.PC] Routine 11/28/18 12:00 Fluconazole/Normal Saline [Diflucan in NS 200 MG/100 ML] 200 mg Premix Bag 1 bag IV Q24H 11/28/18 16:30 Pantoprazole [ProTONIX] 40 mg PO BIDAC glyBURIDE [Micronase] 5 mg PO BIDAC metFORMIN [Glucophage XR] 1,000 mg PO BIDAC 11/29/18 05:00 CBC W/O DIFF,HEMOGRAM [HEME] Timed (1) - Plan Plan:: ASSESSMENT AND PLAN DIARRHEA - likely secondary to enteritis versus colitis. CT was negative. Diarrhea has resolved. -Stool for Clostridium difficile -Discontinue antibiotics -Saline lock IV ESOPHAGITIS - thickening of the esophagus identified on CT scan with dysphasia over the past week or so. EGD showed significant esophagitis and some plaques that were concerning for developing Christina infection. Biopsies were taken at the time of the EGD. -Clear liquid diet, advance as tolerated -Fluconazole -Continue EPI, transition to oral -Follow-up pathology DEHYDRATION - secondary to difficulty with swallowing as well as diarrhea. Hydration status much better today. -Saline lock IV TYPE 2 DIABETES MELLITUS - sugars acceptable so far. -Restart metformin and glipizide -4 times a day glucometers -Consider sliding scale if needed SCHIZOPHRENIA - stable at this time. -Continue outpatient medical regimen MAINTENANCE ISSUES -DVT prophylaxis; scuds -GI prophylaxis; PPI -Avalos catheter; not indicated -Nutrition; clear liquid diet, advance if tolerated -Nicotine dependence; 21 mg nicotine patch and 2 mg nicotine gum ADMISSION STATUS - this patient will be admitted to observation status, expect no more than a one night hospital stay for evaluation and management of problems as outlined above. DISPOSITION - anticipate discharge to home after the hospital stay. Keo Le M.D.
[2018-11-28] MEDS: Fluconazole/Normal Saline 200 MG in Premix Bag 1 BAG IV SCH (12:38)
[2018-11-28] MEDS ORDERED: Pneumococcal Polyvalent-23 Vaccine 0.5 ML SDV IM ONE (14:00)
--- NOTE | 2018-11-28 14:50 | OR ---
DATE OF PROCEDURE: 11/28/2018 PREOPERATIVE DIAGNOSIS: Dysphagia. POSTOPERATIVE DIAGNOSIS: Dysphagia, distal esophagitis, Christina versus tumor. PROCEDURE: Esophagogastroduodenoscopy with biopsy of distal esophagus. SURGEON: Joel Camilo MD ANESTHESIA: IV anesthesia with monitored anesthesia care. INDICATION: This 53-year-old white male is referred for upper endoscopy because of dysphagia. I counseled him for upper endoscopy with possible biopsy, including risks and alternatives, and he gave his informed consent to proceed. PROCEDURE IN DETAIL: The patient was placed in the left lateral decubitus position. IV anesthesia was administered by the Anesthesia Service. Time-out was held. The flexible video Olympus upper endoscope was passed through his mouth, down his esophagus, and into his stomach. The scope was easily passed through the pylorus, into the duodenum, reaching its third portion. The scope was then slowly withdrawn examining the mucosa throughout. The duodenum appeared unremarkable. The scope was brought up through the pylorus. The antrum appeared unremarkable. The scope was retroflexed. The proximal stomach appeared unremarkable. The scope was straightened and brought up through the GE junction. This was markedly abnormal with a great deal of the exudate present. Pulling the scope back proximally up into the esophagus, we saw areas of white flecks, possibly this is Christina versus a tumor at the distal esophagus. We obtained multiple, totalling at least 6 biopsies of the distal esophagus. The scope was then brought proximally up through the remainder of the esophagus which otherwise appeared unremarkable except as noted above. The scope was then removed. He tolerated the procedure well. Joel Camilo MD /[id number]
[2018-11-28] MEDS: metFORMIN 500 MG Tab PO SCH (16:06)
[2018-11-28] MEDS: Pantoprazole 40 MG Tab.CR PO SCH (16:06)
--- NOTE | 2018-11-28 17:05 | CRLCT ---
INDICATION: Head trauma. TECHNIQUE: CT of the head without contrast. Coronal and sagittal reformats are included. COMPARISON: None. FINDINGS: No acute intracranial hemorrhage. No mass effect or midline shift. Normal cerebral volume. No hydrocephalus or extra-axial collections. White matter within normal limits for age. No acute osseous findings. Mastoid bone and paranasal sinuses are clear. Left occipital scalp soft tissue swelling. IMPRESSION: IMPRESSION: 1. No acute intracranial abnormalities. Left occipital scalp soft tissue swelling. Please note that all CT scans at this facility use dose modulation, iterative reconstruction, and/or weight-based dosing when appropriate to reduce radiation dose to as low as reasonably achievable. Dictated by Jamie Myrick MD @ Nov 28 2018 5:01PM Signed by Dr. Jamie Myrick @ Nov 28 2018 5:04PM
[2018-11-28] MEDS ORDERED: Lurasidone 40 MG Tab PO SCH (21:00)
[2018-11-28] MEDS: Doxepin 25 MG Cap PO SCH (21:24)
[2018-11-28] MEDS: ClonazePAM 1 MG Tab PO SCH (21:45)
[2018-11-29] MEDS ORDERED: Diphtheria,Pertussis(Acell),Tetanus Vaccine 0.5 ML SDV IM ONE (09:00)
[2018-11-29] MEDS: Sertraline 50 MG Tab PO SCH (09:04)
[2018-11-29] MEDS: Simvastatin 20 MG Tab PO SCH (09:05)
[2018-11-29] MEDS: metFORMIN 500 MG Tab PO SCH (09:06)
[2018-11-29] MEDS: Pantoprazole 40 MG Tab.CR PO SCH (09:06)
[2018-11-29] MEDS: Nicotine 21 MG/24 Hr Patch TRDERM SCH (09:07)
[2018-11-29] MEDS: Lisinopril 20 MG Tab PO SCH (09:07)
--- NOTE | 2018-11-29 11:29 | PCM.DCSUM1 ---
Discharge Summary - Hospital Course Brief History: 53-year-old male with history of schizophrenia, tobacco dependence and type 2 diabetes mellitus that is suboptimally controlled who presented with watery diarrhea. He was admitted for management of suspected colitis and further evaluation of a thickened esophagus noted on CT scan. Diagnosis: Stroke: No - Discharge Data Discharge Date: 11/29/18 Discharge Disposition: Home, Self-Care 01 Condition: Good - Discharge Diagnosis/Problem(s) (1) Esophagitis determined by endoscopy SNOMED Code(s): 80513438, 904017155 ICD Code: K20.9 - ESOPHAGITIS, UNSPECIFIED Status: Acute Current Visit: Yes (2) Diarrhea SNOMED Code(s): 23407885 ICD Code: R19.7 - DIARRHEA, UNSPECIFIED Status: Acute Current Visit: Yes Qualifiers: Diarrhea type: unspecified type Qualified Code(s): R19.7 - Diarrhea, unspecified (3) Type 2 diabetes mellitus SNOMED Code(s): 09429805 ICD Code: E11.9 - TYPE 2 DIABETES MELLITUS WITHOUT COMPLICATIONS Status: Chronic Current Visit: No Qualifiers: Diabetes mellitus residential insulin use: without terminal operations manager use Diabetes mellitus complication status: without complication Qualified Code(s): E11.9 - Type 2 diabetes mellitus without complications (4) Schizophrenia SNOMED Code(s): 35335612 ICD Code: F20.9 - SCHIZOPHRENIA, UNSPECIFIED Status: Chronic Current Visit: No Qualifiers: Schizophrenia type: unspecified Qualified Code(s): F20.9 - Schizophrenia, unspecified (5) Tobacco dependence SNOMED Code(s): 58428805 ICD Code: F17.200 - NICOTINE DEPENDENCE, UNSPECIFIED, UNCOMPLICATED Status : Chronic Current Visit: No - Patient Summary/Data Consults: Consultations 11/27/18 17:01 Consult to Physician [CONS] Routine Consulting Provider: Joel Camilo Courtesy Call Completed to Consulting Physician: Yes Reason for Consult: EGD in am for eval of esophageal thickening on CT Labs Pending at D/C: Final results of biopsies taken at the time of the upper endoscopy Hospital Course: Yusuf presented to the emergency room with diarrhea. He also reported difficulty with swallowing. Workup in the emergency room revealed leukocytosis with a white blood cell count of more than 26,000 but otherwise normal labs. A CT scan of the abdomen and pelvis did not show any evidence for colitis or abnormality in the abdomen but did show a thickened distal esophagus. The patient was provided IV fluids and was empirically started on antibiotics with infectious diarrhea presumed. The patient did not have any diarrhea after admission to the hospital. He did not have any fevers or abdominal pain. White blood cell count trended down and normalized in 48 hours. Antibiotics were discontinued after less than 24 hours with his resolution of symptoms so quickly. For the thickened esophagus, surgery was consult and an upper endoscopy was performed the morning after admission. This showed evidence for distal esophagitis with what appeared to be white plaques. The appearance was thought to be most consistent with a Christina overgrowth and he was started on fluconazole. Differential would include tumor or other ulcerative/inflammatory conditions. Biopsies were taken at the time of the upper endoscopy. Patient was also started on a proton pump inhibitor to help reduce stomach acid and hopefully help heal up the esophagitis. He is tolerating regular diet on the morning of discharge. He does not have any abdominal pain or dysphagia. He has not had any diarrhea. His white blood cell count is normal. I believe he is safe for outpatient management at this time. He will continue on fluconazole for 5 more days to complete a total of 7 days. I will contact him with the biopsy results when they are available. - Patient Instructions Diet: Regular Diet as Tolerated Activity: As Tolerated Showering/Bathing: May Shower Notify Provider of: Fever, Increased Pain, Nausea and/or Vomiting Other/Special Instructions: 1. You were in the hospital for management of acute diarrhea as well as a thickened esophagus noted on the CT scan. Your diarrhea resolved very quickly and antibiotics were stopped. No further treatment is needed for the diarrhea which was likely viral. Regarding the thickened esophagus we noted on the CT scan, we performed an endoscopy which revealed inflammation and concern for a possible fungal overgrowth. We did take some biopsies and these are still pending at the time of discharge. I would recommend that you take fluconazole 150 mg daily for 5 days. Your next dose is due tomorrow. I will contact you with the results from the pathology specimens when they are available. I also recommend that you take omeprazole 40 mg daily to help reduce the stomach acid which will aid in healing up the inflammation in your esophagus. 2. Continue your other medications as previously prescribed. 3. Follow up as scheduled next week - Discharge Plan *PRESCRIPTION DRUG MONITORING PROGRAM REVIEWED*: Not Applicable *COPY OF PRESCRIPTION DRUG MONITORING REPORT IN PATIENT SHASHANK: Not Applicable Prescriptions/Med Rec: Fluconazole 150 mg PO DAILY #5 tablet Omeprazole 40 mg PO DAILY #30 cap.cr Home Medications: Home Meds Lisinopril 20 mg PO DAILY 10/29/18 [History] Lurasidone HCl [Latuda] 160 mg PO BEDTIME 10/29/18 [History] Sertraline HCl [Zoloft] 150 mg PO DAILY 10/29/18 [History] glyBURIDE [Micronase] 5 mg PO BIDAC 10/29/18 [History] metFORMIN [Glucophage XR] 1,000 mg PO BIDAC 10/29/18 [History] Doxepin [SINEquan] 50 mg PO BEDTIME 11/27/18 [History] Simvastatin [Zocor] 40 mg PO DAILY 11/27/18 [History] clonazePAM [Clonazepam] 1 mg PO BEDTIME 11/27/18 [History] Fluconazole 150 mg PO DAILY #5 tablet 11/29/18 [Rx] Omeprazole 40 mg PO DAILY #30 cap.cr 11/29/18 [Rx] Oxygen Therapy Mode: Room Air Patient Handouts: Esophagitis Referrals: Diego Koenig MD [Physician] - 12/08/18 1:00 pm Chelsea Kelley PA-C [Ordering Only Provider] - 12/12/18 1:30 pm - Discharge Summary/Plan Comment DC Time >30 min.: No - Patient Data Vitals - Most Recent: Last Vital Signs Temp 35.9 C 11/29/18 09:02 Pulse 88 11/29/18 09:02 Resp 20 11/29/18 09:02 BP 152/78 H 11/29/18 09:07 Pulse Ox 97 11/29/18 09:02 Weight - Most Recent: 93.531 kg I&O - Last 24 hours: Intake & Output 11/28/18 11/29/18 11/29/18 22:59 06:59 14:59 Intake Total 1820 300 Balance 1820 300 Lab Results - Last 24 hrs: Laboratory Results - last 24 hr 11/29/18 Range/Units 04:50 WBC 11.0 (4.5-11.0) K/uL RBC 4.74 (4.30-5.90) M/uL Hgb 13.6 (12.0-15.0) g/dL Hct 39.9 L (40.0-54.0) % MCV 84 (80-98) fL MCH 29 (27-31) pg MCHC 34 (32-36) % Plt Count 353 (150-400) K/uL ANA Results - Last 24 hrs: Microbiology 11/27/18 12:45 Aerobic Blood Culture - Preliminary Blood - Venous - Lab Draw NO GROWTH AFTER 1 DAY Anaerobic Blood Culture - Preliminary NO GROWTH AFTER 1 DAY 11/27/18 12:35 Aerobic Blood Culture - Preliminary Blood - Arm, Left NO GROWTH AFTER 1 DAY Anaerobic Blood Culture - Preliminary NO GROWTH AFTER 1 DAY Med Orders - Current: Current Medications Acetaminophen (Tylenol) 650 mg PO Q4H PRN PRN Reason: Pain (Mild 1-3)/fever Clonazepam (Klonopin) 1 mg PO BEDTIME [facility] Last Admin: 11/28/18 21:45 Dose: 1 mg Dextrose (Glutose 15) 15 gm PO ONETIME PRN PRN Reason: Hypoglycemia Dextrose/Water (Dextrose 50% In Water) 50 ml IV ONETIME PRN PRN Reason: Hypoglycemia Doxepin HCl (Sinequan) 50 mg PO BEDTIME [facility] Last Admin: 11/28/18 21:24 Dose: 50 mg Glyburide (Micronase) 5 mg PO BIDAC [facility] Last Admin: 11/29/18 09:03 Dose: 5 mg Fluconazole/Sodium Chloride (200 mg/ Premix) 100 mls @ 100 mls/hr IV Q24H [facility] Last Admin: 11/28/18 12:38 Dose: 100 mls/hr Lisinopril (Prinivil) 20 mg PO DAILY [facility] Last Admin: 11/29/18 09:07 Dose: 20 mg Lurasidone HCl (Latuda) 160 mg PO BEDTIME [facility] Last Admin: 11/28/18 21:23 Dose: 160 mg Metformin HCl (Glucophage) 1,000 mg PO BIDMEALS [facility] Last Admin: 11/29/18 09:06 Dose: 1,000 mg Nicotine (Habitrol) 21 mg TRDERM DAILY [facility] Last Admin: 11/29/18 09:07 Dose: Not Given Nicotine Polacrilex (Nicorelief) 2 mg CHEW Q1H PRN PRN Reason: Other Ondansetron HCl (Zofran) 4 mg IV Q4H PRN PRN Reason: Nausea/Vomiting Last Admin: 11/27/18 17:16 Dose: 4 mg Pantoprazole Sodium (Protonix) 40 mg PO BIDAC [facility] Last Admin: 11/29/18 09:06 Dose: 40 mg Sertraline HCl (Zoloft) 150 mg PO DAILY [facility] Last Admin: 11/29/18 09:04 Dose: 150 mg Simvastatin (Zocor) 40 mg PO DAILY [facility] Last Admin: 11/29/18 09:05 Dose: 40 mg Sodium Chloride (Saline Flush) 10 ml FLUSH ASDIRECTED PRN PRN Reason: Keep Vein Open Last Admin: 11/28/18 14:21 Dose: 10 ml Discontinued Medications Diphtheria/Tetanus/Acell Pertussis (Adacel) 0.5 ml IM .ONCE ONE Stop: 11/29/18 09:01 Fentanyl (Sublimaze) Confirm Administered Dose 100 mcg .ROUTE .STK-MED ONE Stop: 11/28/18 08:10 Lactated Ringer's (Ringers, Lactated) 1,000 mls @ 999 mls/hr IV ASDIRECTED [facility] Last Admin: 11/27/18 13:04 Dose: 999 mls/hr Sodium Chloride (Normal Saline) 100 mls @ 3 mls/sec IV ASDIRECTED [facility] Last Admin: 11/27/18 15:26 Dose: 3 mls/sec Ciprofloxacin/Dextrose 400 mg/ (Premix) 200 mls @ 200 mls/hr IV Q12H [facility] Last Admin: 11/28/18 04:39 Dose: 200 mls/hr Metronidazole 500 mg/ Premix 100 mls @ 100 mls/hr IV Q8H [facility] Last Admin: 11/28/18 10:51 Dose: 100 mls/hr Sodium Chloride (Normal Saline) 1,000 mls @ 125 mls/hr IV ASDIRECTED [facility] Last Admin: 11/28/18 10:27 Dose: 125 mls/hr Insulin Human Lispro (Humalog) 0 unit SUBCUT QIDACANDBED [facility]; Protocol Last Admin: 11/28/18 18:50 Dose: 1 units Iopamidol (Isovue-300 (61%)) 100 ml IV . DIRECTED [facility] Last Admin: 11/27/18 15:27 Dose: 100 ml Pantoprazole Sodium (Protonix Iv) 40 mg IVPUSH Q12H [facility] Last Admin: 11/28/18 05:36 Dose: 40 mg Pneumococcal Polyvalent Vaccine (Pneumovax 23) 0.5 ml IM .ONCE ONE Stop: 11/28/18 14:01 Last Admin: 11/28/18 14:15 Dose: 0.5 ml Propofol (Diprivan 20 Ml) Confirm Administered Dose 200 mg .ROUTE .STK-MED ONE Stop: 11/28/18 08:11 Sodium Chloride (Saline Flush) 10 ml FLUSH ONETIME ONE Stop: 11/27/18 15:16 Last Admin: 11/27/18 15:26 Dose: 10 ml - Exam Quality Assessment: Denies: Supplemental Oxygen General: Reports: Alert, Oriented, Cooperative, No Acute Distress Lungs: Reports: Normal Respiratory Effort GI/Abdominal Exam: Soft, No Distention Extremities: No Pedal Edema Skin: Reports: Warm, Dry Psy/Mental Status: Reports: Alert. Denies: Depressed *Q Meaningful Use (DIS) - VTE *Q VTE Pharmacological Contraindications *Q: Patient Scheduled Surgery
[2018-11-29] MEDS: Fluconazole/Normal Saline 200 MG in Premix Bag 1 BAG IV SCH (13:52)
== END 2018-11-29 16:40 | disposition home or self-care (01) ==
LOC: JP.ED 12:14 → JP.MS 16:21
PROVIDERS: ADMIT Hospitalist; ATTEND Internal Medicine
DX: R19.7 Diarrhea, unspecified (principal); K20.9 Esophagitis, unspecified; E86.0 Dehydration; E11.9 Type 2 diabetes mellitus without complications; I10 Essential (primary) hypertension; F20.9 Schizophrenia, unspecified; F17.210 Nicotine dependence, cigarettes, uncomplicated; Z79.899 Other long term (current) drug therapy; Z79.84 Long term (current) use of oral hypoglycemic drugs; E78.00 Pure hypercholesterolemia, unspecified
CPT/HCPCS: 36415; 36600; 70450; 71046; 74177; 80048; 80053; 81001; 82803; 82962; 83605; 84145; 84484; 85025; 85027; 86140; 87040; 88305; 88312; 90471; 90715; 90732; 96360; 96361; 96365; 96366; 96367; 96375; 96376; 99285-25; A9270-GY; C9113; G0009; G0378; J0744; J1450; J1815; J2405; J2704; J3010; J3490; J7030; J7120; Q9967

== ENCOUNTER 2023-04-22 12:52 | Emergency (ER) | payer MEDICAID ==
[2023-04-22] MEDS ORDERED: Acetaminophen 325 MG Tab PO ONE (13:03)
[2023-04-22 13:29] LABS: BASOPHILS PERCENT AUTO 1.2 % (0.1-1.3); EOSINOPHILS PERCENT AUTO 0.2 % (0.0-5.4); HEMOGLOBIN 15.5 g/dL (12.9-16.9); IMMATURE GRAN PERCENT AUTO 0.2 % (0.0-0.7); LYMPHOCYTES ABSOLUTE AUTO 0.96 K/uL (0.8-3.3); LYMPHOCYTES PERCENT AUTO 11.4 % (11.4-47.7); MEAN CORPUSCULAR HEMOGLOBIN 29.5 pg (31.6-35.5); MEAN CORPUSCULAR HGB CONC 34.4 g/dL (31.6-35.5); MEAN CORPUSCULAR VOLUME 85.7 fL (81.4-99.0); MONOCYTES ABSOLUTE AUTO 1.75 K/uL (0.20-0.90); MONOCYTES PERCENT AUTO 20.9 % (3.3-12.6); NEUTROPHILS ABSOLUTE AUTO 5.54 K/uL (1.0-7.6); NEUTROPHILS PERCENT AUTO 66.1 % (40.0-78.1); PLATELET COUNT,PLT 211 K/uL (130-375); RED BLOOD CELL COUNT 5.25 M/uL (4.14-5.76); WHITE BLOOD CELL COUNT,WBC 8.4 K/uL (3.2-11.0)
[2023-04-22 13:30] LABS: EOSINOPHILS ABSOLUTE AUTO 0.02 K/uL (0.00-0.40); IMMATURE GRAN ABSOLUTE AUTO 0.02 K/uL (0.00-0.23)
[2023-04-22] MEDS ORDERED: Acetaminophen 325 MG Tab ONE (13:35)
[2023-04-22 13:43] LABS: POTASSIUM,K 4.2 mmol/L (3.6-5.2)
[2023-04-22 13:44] LABS: CALCIUM 7.9 mg/dL (8.5-10.1); EST CRCL DRUG DOSING (CG) 84.71 mL/min
[2023-04-22 13:50] LABS: CORONAVIRUS COVID-19 NAA NEGATIVE (NEGATIVE); INFLUENZA A NAA POSITIVE (NEGATIVE); INFLUENZA B NAA NEGATIVE (NEGATIVE); RESPIRATORY SYNCYTIAL VIR NAA NEGATIVE (NEGATIVE)
[2023-04-22 13:51] LABS: ANION GAP 14.2 mmol/L (5.0-14.0)
== END 2023-04-22 15:17 ==
LOC: JP.ED 12:52
DX: J10.1 Influenza due to other identified influenza virus with other respiratory manifestations (principal); E11.9 Type 2 diabetes mellitus without complications; Z20.822 Contact with and (suspected) exposure to COVID-19; Z79.4 Long term (current) use of insulin; Z79.899 Other long term (current) drug therapy; Z88.0 Allergy status to penicillin; Z88.8 Allergy status to other drugs, medicaments and biological substances
CPT/HCPCS: 0241U; 36415; 80048; 85025; 99283; 99285; A9270-GY